=== PATIENT | female | born 1980 | race Two or more races ===

== ENCOUNTER 2018-10-26 07:59 | Outpatient (CLI) | payer OTHER ==
[~2018-10-26 07:59] MED LIST: PRENATAL CAPLE1 EACH PO
== END 2018-10-26 08:04 | disposition home or self-care (01) ==
LOC: SONOGRAMA 07:59
DX: E04.1 Nontoxic single thyroid nodule (principal)

== ENCOUNTER 2023-04-23 08:40 | Outpatient (CLI) | payer OTHER | END 2023-04-23 08:43 | disposition home or self-care (01) | LOC: SONOGRAMA 08:40 | PROVIDERS: ATTEND Pathology Anatomic Pathology & Clinical Pathology | DX: E04.9 Nontoxic goiter, unspecified (principal); D34 Benign neoplasm of thyroid gland ==

== ENCOUNTER → 2025-03-06 | Emergency (ER) | payer OTHER ==
[~2025-03-06] VITALS: Ht 170.2 cm; Wt 68.0 kg
[~2025-03-06] MED LIST changes: +0.9 % SODIUM CHLORIDE 1,000 ML IV ONE
== END | disposition left against medical advice (07) ==
LOC: ER 10:42
DX: R00.2 Palpitations (principal); E03.8 Other specified hypothyroidism; E78.49 Other hyperlipidemia